=== PATIENT | male | born 1970 | race Caucasian/White ===

== ENCOUNTER 2021-05-13 08:39 | Emergency (ER) | payer SELFPAY ==
[~2021-05-13] VITALS: Ht 185.4 cm; Wt 68.0 kg
[2021-05-13 08:50] VITALS: BP 104/62
== END 2021-05-13 09:41 | disposition home or self-care (01) ==
LOC: EMS 08:44
DX: G89.29 Other chronic pain (principal); M54.9 Dorsalgia, unspecified; F12.90 Cannabis use, unspecified, uncomplicated; F17.210 Nicotine dependence, cigarettes, uncomplicated; Z88.8 Allergy status to other drugs, medicaments and biological substances
CPT/HCPCS: 99283; Z7502